=== PATIENT | female | born 1960 | race Caucasian/White ===

== ENCOUNTER 2017-01-20 19:57 | Emergency (ER) | payer OTHER ==
[~2017-01-20 19:57] MED LIST: ALBUTEROL SULF8.5 G1 IH; ALBUTEROL17 GM; ALIVE MULTIVITAMIN PO; ALLEGRA30 MG PO; ASMANEX0; AVELOX400 MG; FISH OIL 1,0001 CAP PO; LEVAQUIN250 MG PO; LITE COAT ASPI325 M1 PO; MULTIVITAMIN1 CAP; OMEGA ESSENTIA240 ML; SILVER PO; SUDAFED60 MG/TAB GT; VITAMIN C1000 MG PO; ZOFRAN ODT4 MG/UDTAB PO; ZYRTEC1010 PO; ZYRTEC5 MG
[2017-01-20 20:46] LABS: BASO % 0.5 % (0-2); EOS % 3.2 % (0-7); EOSINOPHIL ABSOLUTE COUNT 0.1 tho/cmm (0.0-0.7); HCT-HEMATOCRIT 38.2 % (34.0-49.0); HGB-HEMOGLOBIN 12.7 gm/dl (12.0-15.5); LYMPH ABSOLUTE COUNT 1.8 tho/cmm (0.8-4.5); MCH (MEAN CORPUSCULAR HGB) 29.4 pg (28.0-32.0); MCHC MEAN CORPUSCULAR HGB CONC 33.2 % (32.0-36.0); MCV (MEAN CELL VOLUME) 88.4 fl (82.0-96.0); MEAN PLATELET VOLUME 9.9 cmc (9.4-12.4); MONO % 9.9 % (0-12); MONOCYTE ABSOLUTE COUNT 0.4 tho/cmm (0.0-1.2); NEUTROPHILS % 45.4 % (40-80); PLATELET COUNT 280 tho/cmm (150-450); RED BLOOD COUNT 4.32 mil/cmm (4.00-5.20); RED CELL DISTRIBUTION WIDTH 12.7 % (12.4-16.4); WHITE BLOOD COUNT 4.3 tho/cmm (4.0-10.0)
[2017-01-20 21:02] LABS: ANION GAP 10 mmol/L (0-20); BLOOD UREA NITROGEN 18 mg/dl (6-24); CALCIUM 8.8 mg/dl (8.5-10.5); CARBON DIOXIDE-VENOUS 30 mmol/L (22-32); CHLORIDE 103 mmol/l (96-110); CREATININE 0.91 mg/dl (0.50-1.10); GLUCOSE 110 mg/dL (70-110); POTASSIUM 3.8 mmol/L (3.7-5.1); SODIUM 139 mmol/L (135-145); eGFR VALUE FOR BLACK 82 mL/Min
== END 2017-01-20 21:44 ==
LOC: EDMED 19:57
PROVIDERS: Emergency Medicine
DX: I10 Essential (primary) hypertension (principal); I20.0 Unstable angina; R20.0 Anesthesia of skin; R07.89 Other chest pain; I48.91 Unspecified atrial fibrillation; J45.909 Unspecified asthma, uncomplicated; R06.02 Shortness of breath; Z95.1 Presence of aortocoronary bypass graft; Z79.51 Long term (current) use of inhaled steroids; Z79.82 Long term (current) use of aspirin; Z79.899 Other long term (current) drug therapy

== ENCOUNTER 2017-02-09 13:42 | Observation (INO) | payer OTHER ==
[2017-02-09] MEDS ORDERED: GLUCOSAMINE CH1 EAC8 PO (13:51)
[2017-02-09 14:46] LABS: BASO % 0.7 % (0-2); EOS % 3.5 % (0-7); EOSINOPHIL ABSOLUTE COUNT 0.2 tho/cmm (0.0-0.7); HCT-HEMATOCRIT 36.8 % (34.0-49.0); HGB-HEMOGLOBIN 12.5 gm/dl (12.0-15.5); LYMPH % 35.8 % (20-45); LYMPH ABSOLUTE COUNT 1.5 tho/cmm (0.8-4.5); MCH (MEAN CORPUSCULAR HGB) 29.8 pg (28.0-32.0); MCV (MEAN CELL VOLUME) 87.8 fl (82.0-96.0); MEAN PLATELET VOLUME 9.6 cmc (9.4-12.4); MONO % 10.6 % (0-12); MONOCYTE ABSOLUTE COUNT 0.5 tho/cmm (0.0-1.2); NEUTROPHIL ABSOLUTE COUNT 2.1 tho/cmm (1.6-8.0); NEUTROPHIL-AUTOMATED 2.1 tho/cmm (1.6-8.0); NEUTROPHILS % 49.4 % (40-80); PLATELET COUNT 281 tho/cmm (150-450); RED BLOOD COUNT 4.19 mil/cmm (4.00-5.20); RED CELL DISTRIBUTION WIDTH 12.7 % (12.4-16.4); WHITE BLOOD COUNT 4.3 tho/cmm (4.0-10.0)
[2017-02-09 15:01] LABS: ANION GAP 11 mmol/L (0-20); BLOOD UREA NITROGEN 21 mg/dl (6-24); CALCIUM 8.9 mg/dl (8.5-10.5); CARBON DIOXIDE-VENOUS 29 mmol/L (22-32); CHLORIDE 103 mmol/l (96-110); CREATININE 0.91 mg/dl (0.50-1.10); GLUCOSE 98 mg/dL (70-110); POTASSIUM 3.5 mmol/L (3.7-5.1); SODIUM 139 mmol/L (135-145); eGFR VALUE FOR BLACK 82 mL/Min
== END 2017-02-10 11:35 ==
LOC: EDMED 13:42 → EMR2 16:46 → CAR1 17:24
PROVIDERS: Emergency Medicine; ADMIT Internal Medicine Cardiovascular Disease
DX: R07.9 Chest pain, unspecified (principal); I48.0 Paroxysmal atrial fibrillation; I10 Essential (primary) hypertension; Z82.49 Family history of ischemic heart disease and other diseases of the circulatory system; Z79.899 Other long term (current) drug therapy; Z88.8 Allergy status to other drugs, medicaments and biological substances; Z79.82 Long term (current) use of aspirin
CPT/HCPCS: A9500; G0378